=== PATIENT | female | born 1960 | race Two or more races ===

== ENCOUNTER 2019-11-19 21:15 | Emergency (ER) | payer OTHER ==
--- NOTE | 2019-11-19 21:55 | ED ---
HPI Chest Pain - HPI Summary HPI Summary: 59 year old female presents to the ED with a chief complaint of sub-sternal chest pain starting 2-3 days ago. Patient also reports dizziness, diarrhea, nausea, vomiting, non-productive cough, chills, rhinorrhea, and palpitations. Her chest pain is rated an 8/10 in severity. She denies chest congestion, travel , and being informed of exposure to lab-confirmed COVID-19. Patient states that she recently finished medication for acid reflux. History of HTN. - History of Current Complaint Chief Complaint: EDChestWallPain Time Seen by Provider: 11/19/19 21:45 Hx Obtained From: Patient Onset/Duration: Started Days Ago, Still Present Timing: Constant Initial Severity: Severe Current Severity: Severe Pain Intensity: 8 Pain Scale Used: 0-10 Numeric Chest Pain Location: Discrete at:, Lower Sternal Chest Pain Radiates: No Character: Cough, Non-Productive Aggravating Factor(s): Nothing Alleviating Factor(s): Nothing Associated Signs and Symptoms: Positive: Chest Pain, Nausea, Nonproductive Cough , Vomiting, Nasal Congestion, Other: - Allergy/Home Medications Allergies/Adverse Reactions: Allergies Allergy/AdvReac Type Severity Reaction Status Date / Time No Known Allergies Allergy Verified 11/19/19 22:15 Home Medications: Home Medications Ibuprofen 200 mg PO TID PRN 05/17/14 [History Confirmed 11/22/15] Loratadine [Allergy Relief] 10 mg PO DAILY PRN 05/17/14 [History Confirmed 11/21] Methylphenidate ER TAB* [Concerta ER TAB*] 27 mg PO DAILY 05/17/14 [History Confirmed 11/22/15] Mometasone NASAL (NF) [Nasonex (NF)] 1 spray BOTH NARES DAILY PRN 05/17/14 [ History Confirmed 11/22/15] Potassium Chloride Microencaps [Klor-Con M20] 20 meq PO BID 05/17/14 [History Confirmed 11/22/15] Psyllium Husk [Metamucil] 1 cap PO BID 05/17/14 [History Confirmed 11/22/15] Spironolactone (NF) [Spironolactone 50 MG (NF)] 50 mg PO DAILY 05/17/14 [ History Confirmed 11/22/15] ALPRAZolam TAB* [Xanax TAB*] 0.25 mg PO BID 11/22/15 [History Confirmed 11/22/15 ] Bupropion HCl [Bupropion HCl ER] 150 mg PO DAILY 11/22/15 [History Confirmed ] Calcium Carbonate-Vitamin D [Calcium 600 + D] 1 tab PO DAILY 11/22/15 [History Confirmed 11/22/15] Omeprazole CAP (NF) [PriLOSEC CAP*] 40 mg PO DAILY 11/22/15 [History Confirmed 11/22/15] amLODIPine TAB* [Norvasc TAB*] 5 mg PO DAILY 11/27/15 [History Confirmed ] PMH/Surg Hx/FS Hx/Imm Hx Previously Healthy: Yes Endocrine/Hematology History: Denies: Hx Diabetes Cardiovascular History: Reports: Hx Hypertension Denies: Hx Pacemaker/ICD History: Denies: Hx Renal Disease Sensory History: Denies: Hx Hearing Aid Psychiatric History: Denies: Hx Panic Disorder - Cancer History Hx Chemotherapy: No Hx Radiation Therapy: No - Surgical History Surgery Procedure, Year, and Place: HYSTERECTOMY; C SECTION; COSMETIC BREAST LIFT; TONSILECTOMY Infectious Disease History: No Infectious Disease History: Denies: Traveled Outside the [place] in Last 30 Days - Social History Alcohol Use: Daily Alcohol Amount: ' a glass of wine a day' Substance Use Type: Reports: None Smoking Status (MU): Never Smoked Tobacco Review of Systems Positive: Chills Positive: Nasal Discharge Positive: Palpitations, Chest Pain Positive: Cough - nonproductive Positive: Vomiting, Diarrhea, Nausea Neurological/Mental Status: Other - dizziness All Other Systems Reviewed And Are Negative: Yes Physical Exam - Summary Physical Exam Summary: Constitutional: Well-developed, Well-nourished, Alert. (-) Distressed Skin: Warm, Dry HENT: Normocephalic; Atraumatic Eyes: Conjunctiva normal Neck: Musculoskeletal ROM normal neck. (-) JVD, (-) Stridor, (-) Tracheal deviation Cardio: Rhythm regular, rate normal, Heart sounds normal; Intact distal pulses; The pedal pulses are 2+ and symmetric. Radial pulses are 2+ and symmetric. (-) Murmur Pulmonary/Chest wall: Effort normal. (-) Respiratory distress, (-) Wheezes, (-) Rales Abd: Soft, (-) tenderness, (-) Distension, (-) Guarding, (-) Rebound Musculoskeletal: (-) Edema Lymph: (-) Cervical adenopathy Neuro: Alert, Oriented x3 Psych: Mood and affect Normal Triage Information Reviewed: Yes Vital Signs On Initial Exam: Initial Vitals Temp Pulse Resp BP Pulse Ox 97.5 F 97 16 143/84 98 11/19/19 21:21 11/19/19 21:21 11/19/19 21:21 11/19/19 21:21 11/19/19 21:21 Vital Signs Reviewed: Yes Procedures - Sedation Patient Received Moderate/Deep Sedation with Procedure: No Diagnostics - Vital Signs Vital Signs Temp Pulse Resp BP Pulse Ox 11/19/19 21:21 97.5 F 97 16 143/84 98 - Laboratory Result Diagrams: 11/19/19 22:10 11/19/19 22:10 Lab Statement: Any lab studies that have been ordered have been reviewed, and results considered in the medical decision making process. - Radiology CXR Radiology Interpretation Completed By: ED Physician Summary of Radiographic Findings: No acute disease An ED physician has reviewed and interpreted this scan. Pending official read. - EKG 220 Cardiac Rate: NL - 73 bpm EKG Rhythm: Sinus Rhythm ST Segment: Normal Ectopy: None EKG Comparison: No Significant Change Summary of EKG Findings: EKG at 2202 shows NSR at 73 bpm. No acute changes. No STEMI. This is a normal EKG. An ED physician has reviewed and interpreted this EKG. Chest Pain Course/Dx - Course Course Of Treatment: 59 year old female presents to the ED with a chief complaint of sub-sternal chest pain starting 2-3 days ago. Patient also reports dizziness, diarrhea, nausea, vomiting, non-productive cough, chills, rhinorrhea , and palpitations. Her chest pain is rated an 8/10 in severity. She denies chest congestion, travel, and being informed of exposure to lab-confirmed COVID- 19. Patient states that she recently finished medication for acid reflux. History of HTN. EKG at 2202 shows NSR at 73 bpm. No acute changes. No STEMI. This is a normal EKG. Chest XR shows no acute disease. Influenza A and B rapid tests both returned negative. COVID-19 test pending. Lab results show potassium 3.3 and glucose 148. Diagnosis is URI and chest pain. Patient will be discharged home. Follow up with PCP in 3-5 days. Patient understands and agrees with this plan. - Diagnoses Provider Diagnoses: URI (upper respiratory infection), Chest pain Is Visit Related: No Discharge ED - Sign-Out/Discharge Documenting (check all that apply): Patient Departure - discharge home - Discharge Plan Condition: Stable Disposition: HOME Patient Education Materials: Chest Pain (ED), Upper Respiratory Infection (ED) Forms: COVID-19 Tested & Isolation Referrals: Meagan Campos MD [Primary Care Provider] - Additional Instructions: Follow up with your primary care provider in 2-3 days. Please self-quarantine. Return to the ED if you experience new or worsened symptoms. - Billing Disposition and Condition Condition: STABLE Disposition: Home - Attestation Statements Document Initiated by Tiffany: Yes Documenting Scribe: Toño Zacarias Provider For Whom Tiffany is Documenting (Include Credential): Andres Brower DO [employer] Attestation: Toño Mott scribed for Andres Brower DO on 11/20/19 at 0003. Scribe Documentation Reviewed: Yes Provider Attestation: The documentation as recorded by the Toño alvarez accurately reflects the service I personally performed and the decisions made by Andres shah DO Status of [employer] Document: Viewed
[2019-11-19 22:23] LABS: Influenza A Molecular Negative (Negative); Influenza B Molecular Negative (Negative)
[2019-11-19 22:25] LABS: ABS Lymphocytes 0.7 10^3/ul (1.0-4.8); ABS Monocytes 0.2 10^3/ul (0-0.8); ABS Neutrophils 3.8 10^3/ul (1.5-7.7); Eosinophil % 0.7 %; Hematocrit 37 % (35-47); Lymphocyte % 15.4 %; Mean Corpuscular HGB Conc 35 g/dL (31-36); Mean Corpuscular Hemoglobin 30 pg (27-31); Mean Corpuscular Volume 87 fL (80-97); Mean Platelet Volume 7.9 fL (7.4-10.4); Nucleated Red Blood Cells % 0.1; Platelet Count 255 10^3/uL (150-450); Red Blood Count 4.33 10^6 /uL (3.70-4.87); Red Cell Distribution Width 14 % (10-15); White Blood Count 4.8 10^3/uL (3.5-10.8)
[2019-11-19 22:36] LABS: Albumin 4.7 g/dL (3.2-5.2); Albumin/Globulin Ratio 1.7 (1-3); BUN/Creatinine Ratio 11.7 (8-20); Calcium 9.6 mg/dL (8.6-10.3); EGFR African American 73.5 (>60); EGFR Non-African American 60.7 (>60); Globulin 2.8 g/dL (2-4); Potassium 3.3 mmol/L (3.5-5.0); Total Bilirubin 0.3 mg/dL (0.2-1.0); Total Protein 7.5 g/dL (6.4-8.9)
[2019-11-19 22:49] VITALS: BP 143/89
== END 2019-11-19 22:51 | disposition home or self-care (01) ==
LOC: ED 21:15
DX: J06.9 Acute upper respiratory infection, unspecified (principal); R07.2 Precordial pain; R42 Dizziness and giddiness; R11.10 Vomiting, unspecified; R00.2 Palpitations; Z20.828 Contact with and (suspected) exposure to other viral communicable diseases; I10 Essential (primary) hypertension
CPT/HCPCS: 36415; 71045; 80053; 84484; 85025; 93005; 99283; U0002

== ENCOUNTER 2022-05-09 12:29 | Observation (INO) ==
[2022-05-09 12:52] LABS: ABS Lymphocytes 1.8 10^3/ul (1.0-4.8); ABS Monocytes 0.3 10^3/ul (0-0.8); ABS Neutrophils 1.9 10^3/ul (1.5-7.7); Eosinophil % 1.2 %; Hematocrit 41 % (35-47); Hemoglobin 13.9 g/dL (12.0-16.0); Lymphocyte % 44.1 %; Mean Corpuscular HGB Conc 34 g/dL (31-36); Mean Corpuscular Hemoglobin 30 pg (27-31); Mean Corpuscular Volume 88 fL (80-97); Mean Platelet Volume 8.2 fL (7.4-10.4); Nucleated Red Blood Cells % 0.1; Platelet Count 265 10^3/uL (150-450); Red Blood Count 4.66 10^6 /uL (3.70-4.87); Red Cell Distribution Width 14 % (10-15)
[2022-05-09 13:00] LABS: INR 0.94 (0.89-1.11)
[2022-05-09 13:38] LABS: Albumin 4.9 g/dL (3.2-5.2); Albumin/Globulin Ratio 1.8 (1-3); Globulin 2.7 g/dL (2-4); Total Bilirubin 0.4 mg/dL (0.2-1.0); Total Protein 7.6 g/dL (6.4-8.9); eGFR CKD-EPI 55.6 (>60)
[2022-05-09 14:24] LABS: High Sensitivity Troponin 1 Hr 3 pg/mL (<15)
[2022-05-09] MEDS ORDERED: Iodixanol (CONTRAST) 320 MG/ML 100 ML SDV IV ONE (17:07)
[2022-05-09] MEDS ORDERED: Enoxaparin 40 MG/0.4 ML SYR SUBCUT SCH (22:00)
[2022-05-09] MEDS: Famotidine IV 10 MG/ML 2 ml VIAL (20 mg) IV SLOW PU SCH (22:32)
[2022-05-10] MEDS: Famotidine IV 10 MG/ML 2 ml VIAL (20 mg) IV SLOW PU SCH (10:41)
[2022-05-10 12:15] VITALS: BP 126/86
[2022-05-11] MEDS ORDERED: Famotidine IV 10 MG/ML 2 ml VIAL (20 mg) IV SLOW PU SCH (09:00)
== END 2022-05-10 11:55 | disposition home or self-care (01) ==
LOC: EDHOLD 12:29 → ED 12:29 → EDHOLD 05-10 11:54
PROVIDERS: ADMIT Internal Medicine; ATTEND Internal Medicine